=== PATIENT | female | born 1950 | race Caucasian/White ===

== ENCOUNTER 2023-06-11 17:40 | Inpatient (IN) | payer OTHER ==
[~2023-06-11] VITALS: Ht 165.1 cm; Wt 99.3 kg
[2023-06-11 18:27] VITALS: BP_SYST 138; PULSE 95; RESP 16; TEMP 97.8; O2SAT 92
[2023-06-11 18:40] LABS: BASOPHILS # (AUTO) 0.1 K/uL (0.0-0.2); BASOPHILS % (AUTO) 0.3 % (0.0-2.0); EOSINOPHILS # (AUTO) 0.1 K/uL (0.0-0.4); EOSINOPHILS % (AUTO) 0.3 % (0.0-4.0); HEMATOCRIT 35.3 % (36-48); HEMOGLOBIN 11.5 g/dL (12.0-16.0); LYMPHOCYTES # (AUTO) 1.5 K/uL (1.0-5.5); LYMPHOCYTES % (AUTO) 8.7 % (20.5-51.5); MEAN CORPUSCULAR HEMOGLOBIN 31 pg (27-31); MEAN CORPUSCULAR HGB CONC 33 % (32-36); MEAN CORPUSCULAR VOLUME 94 fL (79.0-98.0); NEUTROPHILS # (AUTO) 14.7 K/uL (1.8-7.7); NEUTROPHILS % (AUTO) 84.7 % (40.0-70.0); PLATELET COUNT (AUTO) 415 K/uL (130-430); RED BLOOD CELL COUNT(AUTO) 3.76 MIL/uL (4.2-6.2); RED CELL DISTRIBUTION WIDTH 15.4 % (9.0-15.0); WHITE BLOOD COUNT (AUTO) 17.3 K/uL (4.8-10.8)
[2023-06-11 18:53] LABS: PROTHROMBIN TIME 10.4 SECS (9.5-12.5)
[2023-06-11 19:05] LABS: ALANINE AMINOTRANSFERASE 18 U/L (12-78); ALBUMIN 2.4 g/dL (3.4-4.8); ANION GAP 8 (5-15); ASPARTATE AMINOTRANSFERASE 20 U/L (10-37); BILIRUBIN,DIRECT 0.1 mg/dL (0.0-0.3); CALCIUM 8.8 mg/dL (8.4-11.0); CARBON DIOXIDE 29 mmol/L (23-29); CHLORIDE 104 mmol/L (98-107); CREATININE 1.03 mg/dL (0.55-1.30); POTASSIUM 4.3 mmol/L (3.5-5.1); SODIUM SERUM 141 mmol/L (136-145); TOTAL BILIRUBIN 0.5 mg/dL (0.0-1.0); TOTAL PROTEIN, SERUM 7.2 g/dL (6.4-8.3); UREA NITROGEN, BLOOD 33 mg/dL (8-21)
[2023-06-11 19:07] LABS: GFR AFRICAN AMERICAN 68 mL/min (>90); GFR NON AFRICAN-AMERICAN 56 mL/min (>90)
[2023-06-11 19:08] LABS: GLUCOSE 420 mg/dL (74-106)
[2023-06-11] MEDS ORDERED: PIPERACILLIN/TAZOBACTAM 3.375 GM/VIAL (ZOSYN) IV ONE (19:24)
[2023-06-11] MEDS: NACL 0.9% 2,000 ML IV ONE (19:38)
[2023-06-11] MEDS: PIPERACILLIN/TAZO 3.375 GM in NS 50 ML IV ONE (19:40)
[2023-06-11] MEDS ORDERED: DORZ10DR9 LEFT EYE (19:57)
[2023-06-11] MEDS ORDERED: DORZ10DR10 EACH EYE (19:57)
[2023-06-11] MEDS ORDERED: LATA2.5D14 EACH EYE (19:57)
[2023-06-11] MEDS ORDERED: LANTUS (19:57)
[2023-06-11] MEDS ORDERED: BRIM5DRO21 EACH EYE (19:57)
[2023-06-11] MEDS ORDERED: GLIP10TA21 PO (19:58)
[2023-06-11] MEDS: INSULIN REGULAR, HUMAN 10 UNITS/0.1 ML, 3 ML VIAL IVP ONE (20:43)
[2023-06-11] MEDS ORDERED: MORPHINE 2 MG/ML INJ. SYRINGE IVP PRN (20:45)
[2023-06-11] MEDS ORDERED: VANCOMYCIN HCL 1000 MG/VIAL IV ONE (20:48)
[2023-06-11] MEDS: KETOROLAC TROMETHAMINE 30 MG VIAL IVP ONE (20:51)
[2023-06-11] MEDS: VANCOMYCIN HCL 1,000 MG in NS 250 ML IV ONE (20:57)
[2023-06-11 21:43] LABS: BILIRUBIN,URINE NEGATIVE (NEGATIVE); CLARITY/URINE SL CLOUDY (CLEAR); COLOR,URINE YELLOW (YELLOW); GLUCOSE,URINE 2+ (NEGATIVE); KETONES,URINE TRACE (NEGATIVE); LEUKOCYTE ESTERASE ,URINE 2+ (NEGATIVE); NITRITE, URINE NEGATIVE (NEGATIVE); PROTEIN URINE 1+ (NEGATIVE); UROBILINOGEN,URINE 0.2 (0.2-1.0)
[2023-06-11 21:46] LABS: BLOOD, URINE TRACE (NEGATIVE)
[2023-06-11 21:53] LABS: RBC,URINE NONE SEEN /HPF (0-3); WBC,URINE 50-80 /HPF (0-3)
[2023-06-11 21:54] LABS: BACTERIA,URINE MODERATE /HPF (None Seen); MUCUS,URINE None Seen /LPF (None Seen); YEAST,URINE Few /HPF (None Seen)
[2023-06-11] MEDS: NACL 0.9% 1,000 ML IV ONE (22:25)
[2023-06-11 22:40] VITALS: BP_SYST 103; PULSE 83; RESP 18; TEMP 97.9
[2023-06-12] MEDS ORDERED: ACETAMINOPHEN 325 MG TABLET PO PRN (00:45)
[2023-06-12] MEDS ORDERED: NALOXONE HCL 0.4 MG/ML AMP (NARCAN) IVP PRN (00:45)
[2023-06-12] MEDS ORDERED: MORPHINE 2 MG/ML INJ. SYRINGE IVP PRN (00:45)
[2023-06-12] MEDS ORDERED: GLUCOSE (DEXTROSE) ORAL GEL -Adults PO PRN (01:00)
[2023-06-12] MEDS: PIPERACILLIN/TAZO 3.375 GM in NS 50 ML IV ONE (02:52)
[2023-06-12] MEDS: PIPERACILLIN/TAZOBACTAM 3.375 GM/VIAL (ZOSYN) IV ONE (02:53)
[2023-06-12] MEDS: PIPERACILLIN/TAZO 3.375/DEX-IS 50 ML IV SCH (06:06)
[2023-06-12] MEDS: INSULIN REGULAR, HUMAN 100 UNITS/ML, 3 ML VIAL (humuLIN R) SUBCUT PRN (06:08)
[2023-06-12 07:22] LABS: BASOPHILS % (AUTO) 0.2 % (0.0-2.0); EOSINOPHILS # (AUTO) 0.1 K/uL (0.0-0.4); EOSINOPHILS % (AUTO) 0.5 % (0.0-4.0); HEMATOCRIT 32.5 % (36-48); HEMOGLOBIN 10.4 g/dL (12.0-16.0); LYMPHOCYTES # (AUTO) 0.9 K/uL (1.0-5.5); LYMPHOCYTES % (AUTO) 7.3 % (20.5-51.5); MEAN CORPUSCULAR HEMOGLOBIN 30 pg (27-31); MEAN CORPUSCULAR HGB CONC 32 % (32-36); MEAN CORPUSCULAR VOLUME 94 fL (79.0-98.0); MONOCYTES # (AUTO) 0.4 K/uL (0.0-1.0); MONOCYTES % (AUTO) 3.6 % (1.7-9.3); NEUTROPHILS % (AUTO) 88.4 % (40.0-70.0); PLATELET COUNT (AUTO) 325 K/uL (130-430); RED BLOOD CELL COUNT(AUTO) 3.47 MIL/uL (4.2-6.2); WHITE BLOOD COUNT (AUTO) 12.5 K/uL (4.8-10.8)
[2023-06-12 08:02] LABS: ALBUMIN 1.9 g/dL (3.4-4.8); CALCIUM 8.3 mg/dL (8.4-11.0); CREATININE 0.75 mg/dL (0.55-1.30); TOTAL BILIRUBIN 0.7 mg/dL (0.0-1.0); TOTAL PROTEIN, SERUM 5.9 g/dL (6.4-8.3)
[2023-06-12 08:30] LABS: HEMOGLOBIN A1C 9.86 % (<5.7)
[2023-06-12] MEDS ORDERED: BRIMONIDINE TAR. 0.2%/TIMOLOL 0.5% EYE DROPS 5 ML EACH EYE SCH (09:00)
[2023-06-12] MEDS: BRIMONIDINE TARTRATE 0.2% 5 mL EYE DROPS OP SCH (09:00)
[2023-06-12] MEDS ORDERED: DORZOLAMIDE HCL/TIMOLOL MAL. 10 ML EYE DROPS (COSOPT) EACH EYE SCH (09:00)
[2023-06-12] MEDS: TIMOLOL MALEATE 0.5% OPHTHALMIC DROPS 5 ML OP SCH (09:00)
[2023-06-12 09:15] VITALS: O2SAT 98
[2023-06-12] MEDS: glipiZIDE XL 5 MG TAB ( GLUCOTROL XL) PO SCH (09:39)
[2023-06-12] MEDS: VANCOMYCIN HCL 1,000 MG in NS 250 ML IV SCH (10:17)
[2023-06-12] MEDS ORDERED: BRIM15DR8 EACH EYE (10:20)
[2023-06-12 11:33] VITALS: BP_SYST 124; PULSE 78; RESP 16; TEMP 99; O2SAT 95
[2023-06-12] MEDS: FLUCONAZOLE 200 mg/ NS 100 ML IV SCH (12:10)
[2023-06-12] MEDS: HYDROcodone/ACETAMIN 10-325 MG TAB PO PRN (14:11)
[2023-06-12 17:53] VITALS: BP_SYST 120; PULSE 76; RESP 17; TEMP 98.4; O2SAT 95
[2023-06-12 20:00] VITALS: BP_SYST 142; PULSE 117; RESP 18; TEMP 99; O2SAT 93
[2023-06-12] MEDS: DORZOLAMIDE 2% OPHTHALMIC SOLN 5ML OP SCH (20:33)
[2023-06-12] MEDS: LATANOPROST 2.5 ML DROPS (XALATAN) EACH EYE SCH (21:00)
[2023-06-12 23:56] VITALS: BP_SYST 130; PULSE 78; RESP 18; TEMP 98.6; O2SAT 96
[2023-06-13 06:35] LABS: ALBUMIN 1.9 g/dL (3.4-4.8); CALCIUM 8.6 mg/dL (8.4-11.0); CREATININE 0.78 mg/dL (0.55-1.30); POTASSIUM 3.8 mmol/L (3.5-5.1); TOTAL BILIRUBIN 0.8 mg/dL (0.0-1.0); TOTAL PROTEIN, SERUM 6.2 g/dL (6.4-8.3)
[2023-06-13 07:15] VITALS: BP_SYST 156; PULSE 78; RESP 22; TEMP 97.9; O2SAT 98; O2SAT 99
[2023-06-13 07:33] LABS: BASOPHILS % (AUTO) 0.2 % (0.0-2.0); EOSINOPHILS # (AUTO) 0.1 K/uL (0.0-0.4); EOSINOPHILS % (AUTO) 0.5 % (0.0-4.0); HEMATOCRIT 33.4 % (36-48); LYMPHOCYTES # (AUTO) 1.4 K/uL (1.0-5.5); LYMPHOCYTES % (AUTO) 10.8 % (20.5-51.5); MEAN CORPUSCULAR HEMOGLOBIN 31 pg (27-31); MEAN CORPUSCULAR HGB CONC 33 % (32-36); MEAN CORPUSCULAR VOLUME 95 fL (79.0-98.0); MONOCYTES # (AUTO) 0.4 K/uL (0.0-1.0); MONOCYTES % (AUTO) 3.1 % (1.7-9.3); NEUTROPHILS # (AUTO) 11.4 K/uL (1.8-7.7); NEUTROPHILS % (AUTO) 85.4 % (40.0-70.0); PLATELET COUNT (AUTO) 323 K/uL (130-430); RED BLOOD CELL COUNT(AUTO) 3.52 MIL/uL (4.2-6.2); RED CELL DISTRIBUTION WIDTH 15.1 % (9.0-15.0); WHITE BLOOD COUNT (AUTO) 13.3 K/uL (4.8-10.8)
[2023-06-13] MEDS: ONDANSETRON HCL 4 MG/2 ML VIAL IVP PRN (08:01)
[2023-06-13 08:05] VITALS: BP_SYST 156; PULSE 78; RESP 22; TEMP 97.9; O2SAT 99
[2023-06-13 08:35] LABS: ERYTHROCYTE SEDIMENTATION RATE 99 MM/HR (0-20)
[2023-06-13 10:42] VITALS: O2SAT 99
[2023-06-13] MEDS: NYSTATIN 15 GM TOPICAL POWDER TP SCH (11:26)
[2023-06-13 11:33] VITALS: BP_SYST 132; PULSE 91; RESP 18; TEMP 97.7; O2SAT 96
[2023-06-13 16:22] VITALS: BP_SYST 126; PULSE 84; RESP 17; TEMP 98; O2SAT 95
[2023-06-13 20:00] VITALS: BP_SYST 136; PULSE 87; RESP 18; TEMP 97.7; O2SAT 96
[2023-06-14 01:15] VITALS: BP_SYST 144; PULSE 92; RESP 17; TEMP 98.4; O2SAT 99
[2023-06-14 05:30] LABS: BASOPHILS % (AUTO) 0.1 % (0.0-2.0); EOSINOPHILS % (AUTO) 0.1 % (0.0-4.0); HEMATOCRIT 34.4 % (36-48); HEMOGLOBIN 11.1 g/dL (12.0-16.0); LYMPHOCYTES # (AUTO) 0.9 K/uL (1.0-5.5); LYMPHOCYTES % (AUTO) 6.6 % (20.5-51.5); MEAN CORPUSCULAR HEMOGLOBIN 30 pg (27-31); MEAN CORPUSCULAR HGB CONC 32 % (32-36); MEAN CORPUSCULAR VOLUME 94 fL (79.0-98.0); MONOCYTES # (AUTO) 0.4 K/uL (0.0-1.0); MONOCYTES % (AUTO) 3.1 % (1.7-9.3); NEUTROPHILS # (AUTO) 12.4 K/uL (1.8-7.7); NEUTROPHILS % (AUTO) 90.1 % (40.0-70.0); PLATELET COUNT (AUTO) 374 K/uL (130-430); RED BLOOD CELL COUNT(AUTO) 3.64 MIL/uL (4.2-6.2); RED CELL DISTRIBUTION WIDTH 15.3 % (9.0-15.0); WHITE BLOOD COUNT (AUTO) 13.8 K/uL (4.8-10.8)
[2023-06-14 05:37] LABS: ERYTHROCYTE SEDIMENTATION RATE 101 MM/HR (0-20)
[2023-06-14 06:10] LABS: ALBUMIN 1.7 g/dL (3.4-4.8); CALCIUM 9.1 mg/dL (8.4-11.0); CREATININE 0.82 mg/dL (0.55-1.30); TOTAL BILIRUBIN 0.7 mg/dL (0.0-1.0); TOTAL PROTEIN, SERUM 6.4 g/dL (6.4-8.3)
[2023-06-14 08:07] VITALS: BP_SYST 131; PULSE 99; RESP 20; TEMP 97.2
[2023-06-14 11:34] VITALS: BP_SYST 152; PULSE 92; RESP 18; TEMP 99.3; O2SAT 94
[2023-06-14] MEDS ORDERED: DIATR MEGLU/DIATRIZ SOD 30 ML SOLUTION PO ONE (12:31)
[2023-06-14 17:05] VITALS: BP_SYST 140; PULSE 84; RESP 17; TEMP 98.2; O2SAT 94
[2023-06-14 20:00] VITALS: BP_SYST 134; PULSE 81; RESP 20; TEMP 97.6; O2SAT 98
[2023-06-14] MEDS ORDERED: MENTHOL/ZINC OXIDE 113 GM OINT. TP PRN (20:00)
[2023-06-14] MEDS: BALSAM PERU/CASTOR OIL 56.7 GM OINT...G. TP ONE (20:00)
[2023-06-14] MEDS: MEROPENEM 500 MG in NS 50 ML IV SCH (21:41)
[2023-06-15 04:00] VITALS: BP_SYST 132; PULSE 87; RESP 18; TEMP 97.7; O2SAT 97
[2023-06-15 06:17] LABS: BASOPHILS % (AUTO) 0.1 % (0.0-2.0); EOSINOPHILS # (AUTO) 0.1 K/uL (0.0-0.4); EOSINOPHILS % (AUTO) 0.9 % (0.0-4.0); HEMATOCRIT 31.3 % (36-48); HEMOGLOBIN 10.1 g/dL (12.0-16.0); LYMPHOCYTES % (AUTO) 6.8 % (20.5-51.5); MEAN CORPUSCULAR HEMOGLOBIN 30 pg (27-31); MEAN CORPUSCULAR HGB CONC 32 % (32-36); MEAN CORPUSCULAR VOLUME 94 fL (79.0-98.0); MONOCYTES # (AUTO) 0.7 K/uL (0.0-1.0); MONOCYTES % (AUTO) 4.8 % (1.7-9.3); NEUTROPHILS # (AUTO) 12.3 K/uL (1.8-7.7); NEUTROPHILS % (AUTO) 87.4 % (40.0-70.0); PLATELET COUNT (AUTO) 361 K/uL (130-430); RED BLOOD CELL COUNT(AUTO) 3.34 MIL/uL (4.2-6.2); WHITE BLOOD COUNT (AUTO) 14.1 K/uL (4.8-10.8)
[2023-06-15 06:41] LABS: CALCIUM 9.4 mg/dL (8.4-11.0); CREATININE 0.65 mg/dL (0.55-1.30); POTASSIUM 3.9 mmol/L (3.5-5.1)
[2023-06-15] MEDS: BALSAM PERU/CASTOR OIL 56.7 GM OINT...G. TP SCH (10:17)
[2023-06-15 11:15] VITALS: BP_SYST 144; PULSE 77; RESP 19; TEMP 99.1; O2SAT 94
[2023-06-15 15:30] VITALS: BP_SYST 151; PULSE 82; RESP 18; TEMP 98.6; O2SAT 94
[2023-06-15 17:45] LABS: BASOPHILS % (AUTO) 0.2 % (0.0-2.0); EOSINOPHILS # (AUTO) 0.5 K/uL (0.0-0.4); EOSINOPHILS % (AUTO) 3.4 % (0.0-4.0); HEMATOCRIT 32.7 % (36-48); HEMOGLOBIN 10.8 g/dL (12.0-16.0); LYMPHOCYTES # (AUTO) 0.9 K/uL (1.0-5.5); MEAN CORPUSCULAR HEMOGLOBIN 31 pg (27-31); MEAN CORPUSCULAR HGB CONC 33 % (32-36); MEAN CORPUSCULAR VOLUME 93 fL (79.0-98.0); MONOCYTES # (AUTO) 0.8 K/uL (0.0-1.0); MONOCYTES % (AUTO) 5.5 % (1.7-9.3); NEUTROPHILS # (AUTO) 13.1 K/uL (1.8-7.7); NEUTROPHILS % (AUTO) 84.9 % (40.0-70.0); PLATELET COUNT (AUTO) 363 K/uL (130-430); RED BLOOD CELL COUNT(AUTO) 3.52 MIL/uL (4.2-6.2); RED CELL DISTRIBUTION WIDTH 14.8 % (9.0-15.0); WHITE BLOOD COUNT (AUTO) 15.4 K/uL (4.8-10.8)
[2023-06-15] MEDS: DEXTROSE 50% JECT 50 ML DISP.SYRIN IVP PRN (19:00)
[2023-06-15] MEDS ORDERED: *PPN PER PHARMACY XX SCH (21:00)
[2023-06-15] MEDS: metroNIDAZOLE 500 mg/NS 100 ML IV SCH (23:16)
[2023-06-16] MEDS: D5/0.45 NS 1,000 ML IV SCH (00:15)
[2023-06-16 00:44] VITALS: BP_SYST 148; PULSE 96; RESP 18; TEMP 97.6; O2SAT 92
[2023-06-16 06:03] LABS: BASOPHILS % (AUTO) 0.2 % (0.0-2.0); EOSINOPHILS # (AUTO) 0.7 K/uL (0.0-0.4); EOSINOPHILS % (AUTO) 4.4 % (0.0-4.0); HEMATOCRIT 32.8 % (36-48); HEMOGLOBIN 10.7 g/dL (12.0-16.0); LYMPHOCYTES # (AUTO) 1.2 K/uL (1.0-5.5); LYMPHOCYTES % (AUTO) 8.1 % (20.5-51.5); MEAN CORPUSCULAR HEMOGLOBIN 31 pg (27-31); MEAN CORPUSCULAR HGB CONC 33 % (32-36); MEAN CORPUSCULAR VOLUME 93 fL (79.0-98.0); MONOCYTES # (AUTO) 0.7 K/uL (0.0-1.0); MONOCYTES % (AUTO) 4.7 % (1.7-9.3); NEUTROPHILS # (AUTO) 12.7 K/uL (1.8-7.7); NEUTROPHILS % (AUTO) 82.6 % (40.0-70.0); PLATELET COUNT (AUTO) 380 K/uL (130-430); RED BLOOD CELL COUNT(AUTO) 3.51 MIL/uL (4.2-6.2); RED CELL DISTRIBUTION WIDTH 15.2 % (9.0-15.0); WHITE BLOOD COUNT (AUTO) 15.4 K/uL (4.8-10.8)
[2023-06-16 06:41] LABS: ALBUMIN 1.4 g/dL (3.4-4.8); CALCIUM 9.3 mg/dL (8.4-11.0); CREATININE 0.58 mg/dL (0.55-1.30); PHOSPHORUS 2.7 mg/dL (2.7-4.5); POTASSIUM 3.8 mmol/L (3.5-5.1); TOTAL BILIRUBIN 0.5 mg/dL (0.0-1.0); TOTAL PROTEIN, SERUM 6.4 g/dL (6.4-8.3)
[2023-06-16 08:00] VITALS: O2SAT 96
[2023-06-16 08:08] VITALS: BP_SYST 136; PULSE 90; RESP 18; TEMP 98; O2SAT 94
[2023-06-16 11:21] VITALS: BP_SYST 138; PULSE 96; RESP 16; TEMP 97.3; O2SAT 93
[2023-06-16] MEDS: HYDROcodone/ACETAMIN 5-325 MG TAB (NORCO/ VICODIN) PO PRN (15:19)
[2023-06-16 15:29] VITALS: BP_SYST 136; PULSE 99; RESP 16; TEMP 97.6; O2SAT 92
[2023-06-16 20:00] VITALS: BP_SYST 134; PULSE 78; RESP 18; TEMP 97.8; O2SAT 98; O2SAT 99
[2023-06-16] MEDS: K PHOS IV SCH (21:29)
[2023-06-16] MEDS: [UNRECOGNIZED DRUG - OTHER] IV SCH (21:29)
[2023-06-16] MEDS: TPN PERIPHERAL IV SCH (21:29)
[2023-06-16] MEDS: SODIUM CHLORIDE IV SCH (21:29)
[2023-06-16] MEDS: FAT EMULSIONS 250 ML IV SCH (21:31)
[2023-06-17] VITALS (7 sets, daily range): BP systolic 117–142; PULSE 78–117; RESP 15–18; TEMP 97.3–98.9; O2SAT 94–99
[2023-06-17 06:57] LABS: BASOPHILS # (AUTO) 0.1 K/uL (0.0-0.2); BASOPHILS % (AUTO) 0.3 % (0.0-2.0); EOSINOPHILS # (AUTO) 0.6 K/uL (0.0-0.4); EOSINOPHILS % (AUTO) 3.7 % (0.0-4.0); HEMATOCRIT 33.4 % (36-48); HEMOGLOBIN 11.1 g/dL (12.0-16.0); LYMPHOCYTES # (AUTO) 1.6 K/uL (1.0-5.5); LYMPHOCYTES % (AUTO) 10.1 % (20.5-51.5); MEAN CORPUSCULAR HEMOGLOBIN 31 pg (27-31); MEAN CORPUSCULAR HGB CONC 33 % (32-36); MEAN CORPUSCULAR VOLUME 94 fL (79.0-98.0); MONOCYTES # (AUTO) 0.7 K/uL (0.0-1.0); MONOCYTES % (AUTO) 4.5 % (1.7-9.3); NEUTROPHILS # (AUTO) 12.7 K/uL (1.8-7.7); NEUTROPHILS % (AUTO) 81.4 % (40.0-70.0); PLATELET COUNT (AUTO) 395 K/uL (130-430); RED BLOOD CELL COUNT(AUTO) 3.56 MIL/uL (4.2-6.2); RED CELL DISTRIBUTION WIDTH 15.4 % (9.0-15.0); WHITE BLOOD COUNT (AUTO) 15.7 K/uL (4.8-10.8)
[2023-06-17 07:30] LABS: ALBUMIN 1.3 g/dL (3.4-4.8); CALCIUM 8.9 mg/dL (8.4-11.0); CREATININE 0.65 mg/dL (0.55-1.30); PHOSPHORUS 2.8 mg/dL (2.7-4.5); POTASSIUM 3.8 mmol/L (3.5-5.1); TOTAL BILIRUBIN 0.5 mg/dL (0.0-1.0); TOTAL PROTEIN, SERUM 6.2 g/dL (6.4-8.3)
[2023-06-17] MEDS ORDERED: DIATR MEGLU/DIATRIZ SOD 30 ML SOLUTION PO ONE (10:01)
[2023-06-17] MEDS: PIPERACILLIN/TAZO 4.5 GM in D5W 100 ML IV SCH (14:58)
[2023-06-17] MEDS: K PHOS IV SCH (21:00)
[2023-06-17] MEDS: [UNRECOGNIZED DRUG - OTHER] IV SCH (21:00)
[2023-06-17] MEDS: TPN PERIPHERAL IV SCH (21:00)
[2023-06-17] MEDS: SODIUM CHLORIDE IV SCH (21:00)
[2023-06-18 00:16] VITALS: BP_SYST 145; PULSE 95; RESP 18; TEMP 97.9; O2SAT 94
[2023-06-18 08:00] VITALS: BP_SYST 130; PULSE 84; RESP 16; TEMP 97; O2SAT 95
[2023-06-18 08:51] LABS: BASOPHILS # (AUTO) 0.1 K/uL (0.0-0.2); BASOPHILS % (AUTO) 0.3 % (0.0-2.0); EOSINOPHILS # (AUTO) 0.6 K/uL (0.0-0.4); EOSINOPHILS % (AUTO) 3.6 % (0.0-4.0); HEMATOCRIT 34.6 % (36-48); HEMOGLOBIN 11.4 g/dL (12.0-16.0); LYMPHOCYTES # (AUTO) 1.5 K/uL (1.0-5.5); LYMPHOCYTES % (AUTO) 9.1 % (20.5-51.5); MEAN CORPUSCULAR HEMOGLOBIN 30 pg (27-31); MEAN CORPUSCULAR HGB CONC 33 % (32-36); MEAN CORPUSCULAR VOLUME 93 fL (79.0-98.0); MONOCYTES # (AUTO) 0.7 K/uL (0.0-1.0); MONOCYTES % (AUTO) 4.1 % (1.7-9.3); NEUTROPHILS # (AUTO) 13.8 K/uL (1.8-7.7); NEUTROPHILS % (AUTO) 82.9 % (40.0-70.0); PLATELET COUNT (AUTO) 378 K/uL (130-430); RED BLOOD CELL COUNT(AUTO) 3.74 MIL/uL (4.2-6.2); RED CELL DISTRIBUTION WIDTH 14.9 % (9.0-15.0); WHITE BLOOD COUNT (AUTO) 16.7 K/uL (4.8-10.8)
[2023-06-18 09:19] LABS: ALBUMIN 1.2 g/dL (3.4-4.8); CALCIUM 8.3 mg/dL (8.4-11.0); CREATININE 0.7 mg/dL (0.55-1.30); PHOSPHORUS 2.6 mg/dL (2.7-4.5); POTASSIUM 3.7 mmol/L (3.5-5.1); TOTAL BILIRUBIN 0.6 mg/dL (0.0-1.0)
[2023-06-18 11:42] VITALS: BP_SYST 136; PULSE 95; RESP 17; TEMP 99; O2SAT 96
[2023-06-18 16:35] VITALS: BP_SYST 128; PULSE 90; RESP 16; TEMP 98.2; O2SAT 95
[2023-06-18 19:52] VITALS: O2SAT 99
[2023-06-18 20:00] VITALS: BP_SYST 135; PULSE 97; RESP 18; TEMP 98.5; O2SAT 99
[2023-06-18] MEDS: TPN PERIPHERAL IV SCH (22:02)
[2023-06-18] MEDS: SODIUM CHLORIDE IV SCH (22:02)
[2023-06-18] MEDS: POTASSIUM CHLORIDE IV SCH (22:02)
[2023-06-18] MEDS: [UNRECOGNIZED DRUG - OTHER] IV SCH (22:02)
[2023-06-19 00:41] VITALS: BP_SYST 137; PULSE 78; RESP 18; TEMP 97.9; O2SAT 99
[2023-06-19 06:43] LABS: BASOPHILS # (AUTO) 0.1 K/uL (0.0-0.2); BASOPHILS % (AUTO) 0.8 % (0.0-2.0); EOSINOPHILS # (AUTO) 0.5 K/uL (0.0-0.4); EOSINOPHILS % (AUTO) 3.3 % (0.0-4.0); HEMATOCRIT 31.3 % (36-48); HEMOGLOBIN 10.2 g/dL (12.0-16.0); LYMPHOCYTES # (AUTO) 1.6 K/uL (1.0-5.5); LYMPHOCYTES % (AUTO) 9.9 % (20.5-51.5); MEAN CORPUSCULAR HEMOGLOBIN 30 pg (27-31); MEAN CORPUSCULAR HGB CONC 33 % (32-36); MEAN CORPUSCULAR VOLUME 92 fL (79.0-98.0); MONOCYTES # (AUTO) 0.9 K/uL (0.0-1.0); MONOCYTES % (AUTO) 5.6 % (1.7-9.3); NEUTROPHILS # (AUTO) 12.9 K/uL (1.8-7.7); NEUTROPHILS % (AUTO) 80.4 % (40.0-70.0); PLATELET COUNT (AUTO) 374 K/uL (130-430)
[2023-06-19 07:24] LABS: ALBUMIN 1.2 g/dL (3.4-4.8); CREATININE 0.63 mg/dL (0.55-1.30); PHOSPHORUS 2.4 mg/dL (2.7-4.5); POTASSIUM 3.2 mmol/L (3.5-5.1); TOTAL BILIRUBIN 0.4 mg/dL (0.0-1.0); TOTAL PROTEIN, SERUM 5.6 g/dL (6.4-8.3)
[2023-06-19 08:00] VITALS: O2SAT 98
[2023-06-19 11:13] VITALS: BP_SYST 122; PULSE 92; RESP 16; TEMP 97.5; O2SAT 96
[2023-06-19 13:52] VITALS: BP_SYST 128; PULSE 84; RESP 18; TEMP 98.4; O2SAT 96
[2023-06-19] MEDS ORDERED: POTASSIUM CHLORIDE IV SCH (21:00)
[2023-06-19] MEDS ORDERED: SODIUM CHLORIDE IV SCH (21:00)
[2023-06-19] MEDS ORDERED: TPN PERIPHERAL IV SCH (21:00)
[2023-06-19] MEDS ORDERED: [UNRECOGNIZED DRUG - OTHER] IV SCH (21:00)
[2023-06-22 08:07] LABS: HEPATITIS A AB, IgM Negative (Negative); HEPATITIS B CORE AB, IgM Negative (Negative); HEPATITIS B SURFACE AG Negative (Negative); HEPATITIS C VIRUS AB Non Reactive (Non Reactive)
== END 2023-06-19 14:28 | disposition hospice, home (50) | DRG 871 ==
LOC: SED 17:40 → STU 20:32 → SMU 06-13 11:12
PROVIDERS: ADMIT Family Medicine; ATTEND Family Medicine
DX: A41.9 Sepsis, unspecified organism (principal); E43 Unspecified severe protein-calorie malnutrition; L03.116 Cellulitis of left lower limb; L97.919 Non-pressure chronic ulcer of unspecified part of right lower leg with unspecified severity; E87.20 Acidosis, unspecified; B37.49 Other urogenital candidiasis; K57.20 Diverticulitis of large intestine with perforation and abscess without bleeding; L03.115 Cellulitis of right lower limb; D64.9 Anemia, unspecified; E11.65 Type 2 diabetes mellitus with hyperglycemia; E88.09 Other disorders of plasma-protein metabolism, not elsewhere classified; Z79.4 Long term (current) use of insulin; Z79.899 Other long term (current) drug therapy; Z68.36 Body mass index [BMI] 36.0-36.9, adult; B96.20 Unspecified Escherichia coli [E. coli] as the cause of diseases classified elsewhere
CPT/HCPCS: 36415; 71045; 80048; 80053; 80074; 80076; 81000; 81001; 81015; 82948; 83037; 83605; 83735; 84100; 84478; 84484; 85025; 85610; 85651; 85730; 87040; 87070; 87075; 87086; 87186; 87536; 93005; 93306; 97110-GP; 97116-GP; 97530-GP; 99291; 99292; G0378; J1450; J1815; J1885; J2185; J2405; J2543; J3370; J3475; J3480; J3490; J7050; J7060; J7131; Q9964; Q9967